=== PATIENT | male | born 1995 | race Caucasian/White ===

== ENCOUNTER 2021-12-08 17:55 | Outpatient (REF) | payer MEDICARE, MEDICAID, SELFPAY ==
[2021-12-08 20:39] LABS: Abs Immature Grans 0.04 10^3/uL (0.0-0.06); Absolute Eosinophil Count 0.11 10^3/uL (0.0-0.7); Absolute Lymphocyte Count 4.01 10^3/uL (1.2-3.4); Absolute Monocyte Count 0.78 10^3/uL (0.1-0.8); Basophils % 0.9; HCT 40.5 % (40.0-50.0); HGB 14.2 g/dL (13.5-17.5); Immature Grans % 0.4; Lymphocytes % 36.3; MCH 30.9 pg (27.0-33.0); MCHC 35.1 % (32.0-36.0); MCV 88.2 fL (80-95); MPV 11.3 fL (8.0-11.0); Monocytes % 7.1; Neutrophils % 54.3; Nucleated RBC 0 %; Platelet Count 316 10^3/uL (130-400); RBC 4.59 10^6/uL (4.36-5.78); RDW 12.3 % (11.8-14.1); RDW-SD 39.3 fL; WBC 11.05 10^3/uL (4.4-10.8)
[2021-12-08 20:59] LABS: Anion Gap 9.4 mmol/L (3-11); BUN 9 mg/dL (7-18); CO2 26.6 mmol/L (21.0-32.0); CREATININE 0.6 mg/dL (0.70-1.30); Chloride 104 mmol/L (98-107); Glucose 94 mg/dL (74-106); Potassium 3.6 mmol/L (3.5-5.1); Sodium 140 mmol/L (136-145); TSH (W/Ref FT4) 0.33 uIU/mL (0.36-3.74)
[2021-12-08 21:19] LABS: FREE T4 0.86 ng/dL (0.76-1.46)
== END 2021-12-08 17:56 | disposition home or self-care (01) ==
LOC: NCHCN 17:55
PROVIDERS: Visit Provider Family Medicine
DX: F41.9 Anxiety disorder, unspecified (principal); M79.10 Myalgia, unspecified site
CPT/HCPCS: 80048; 84439; 84443; 85025

== ENCOUNTER 2021-12-12 06:15 | Emergency (ER) | payer MEDICARE, MEDICAID, SELFPAY ==
[2021-12-12] VITALS (10 sets, daily range): BP systolic 125–145; BP diastolic 74–88; PULSE 75–122; RESP 12–18; TEMP 36.4–37; O2SAT 97–100
--- NOTE | 2021-12-12 06:45 | DI.CT_ITS ---
Exam(s) CT HEAD WO EXAM: CT HEAD WO CLINICAL HISTORY: intermittant weakness, tingling, headache, r/o mas. TECHNIQUE: Imaging Protocol: Axial computed tomography images with coronal and sagittal reformatted images were created and reviewed COMPARISON: No exams were available for comparison FINDINGS: There are no skull fractures nor fluid in the visualized paranasal sinuses. There is no evidence of intracranial hemorrhage, mass effect, or shift of midline structures. There are no extra-axial fluid collections. The ventricles are not enlarged or shifted and there is no blo od within the ventricular system nor within the basal cisterns. There is an element of cerebellar tonsillar ectopia. The temporal horns of the lateral ventricles ar e larger than typical for this age group. IMPRESSION: No acute intracranial findings. However, there is an element of cerebellar tonsillar ectopia. Also slight prominence of the temporal horns of the lateral ventricles noted. Recommend follow-up MRI. RADIATION DOSE DELIVERED: 925.57mGy.cm Total DLP DATA REPOSITORY: All CT scans at this facility are submitted to the National Radiology Data Registry (NRDR) Dose Index Registry (DIR) with the [employer] ([employer]). RADIATION OPTIMIZATION: All CT scans at this facility use at least one of these dose optimization te chniques: automated exposure control; mA and/or kV adjustment per patient size (includes targeted exa ms where dose is matched to clinical indication); or iterative reconstruction.
[2021-12-12] MEDS: Normal Saline 500 ML IV (07:02)
[2021-12-12 07:06] LABS: Source Nasal/Nares
[2021-12-12 07:08] LABS: Abs Immature Grans 0.04 10^3/uL (0.0-0.06); Absolute Basophil Count 0.06 10^3/uL (0.0-0.2); Absolute Monocyte Count 1.14 10^3/uL (0.1-0.8); Basophils % 0.5; Eosinophils % 0.6; HCT 39.3 % (40.0-50.0); HGB 14.3 g/dL (13.5-17.5); Immature Grans % 0.3; Lymphocytes % 27.5; MCH 31.8 pg (27.0-33.0); MCHC 36.4 % (32.0-36.0); MCV 87.3 fL (80-95); MPV 10.8 fL (8.0-11.0); Neutrophils % 62.1; Nucleated RBC 0 %; Platelet Count 295 10^3/uL (130-400); RDW 11.9 % (11.8-14.1); RDW-SD 38.1 fL; WBC 12.71 10^3/uL (4.4-10.8)
[2021-12-12 07:13] LABS: Absolute Eosinophil Count 0.08 10^3/uL (0.0-0.7)
[2021-12-12 07:14] LABS: Absolute Neutrophil Count 7.89 10^3/uL (1.2-6.7)
--- NOTE | 2021-12-12 07:18 | W.ED.GENAD ---
Discharge Plan Disposition Patient Disposition: HOME Condition: Good Discharge Details Clinical Impression: Transient neurological symptoms, Sinusitis Primary Care Provider: Yadira,Local ED Provider: Adolfo Yip Home Meds and New Rx's Prescriptions: New amoxicillin-pot clavulanate 875-125 mg tablet 1 tab PO BID Qty: 14 0RF Continued citalopram [Celexa] 20 MG tablet 20 mg PO DAILY Qty: 90 2RF Rx Instructions: Take 1 tablet daily. sertraline 20 mg/mL Concentrate 20 mg PO 0RF Discharge Instructions Instructions: Sinusitis (ED), Hypokalemia (ED) Additional Instructions: Your blood work showed your potassium was low otherwise your blood work and ct scan did not show an acute concerning findings follow up with your primary care provider and discuss having an outpatient MRI if you feel more ill, have severe worsening pain or weakness return to the emergency department Medical Decision Making <Afshin Borges, - Last Filed: 12/12/21 07:38> This is a very pleasant 26-year-old male with a past medical history of autism spectrum disorder, who presents today with a confluence of atypical symptoms. Patient states that about 1 week ago he developed mild headache, mild flulike symptoms. He took a at home Covid test at that time it was negative. He then subsequently developed mild nasal congestion, and mild fullness in his head. Since then intermittently and spontaneously he has had brief episodes of very atypical neurologic symptoms. These include phantom smells, sudden intermittent weakness in his feet or hands, an episode where the left side of his face briefly locked up, intermittent blurry vision episodes of feeling like he is spacing out, and a few episodes of feeling right he is having an out of body experience. He denies any IV or illicit drug use. He denies any history of symptoms like this before. He denies any syncope. He denies any current fever or chills. He denies any chest pain or cough. He does admit that his grandmother has sinus and upper respiratory symptoms at home right now but no other atypical symptoms. He denies having a history of neurologic abnormalities, and he denies any known family history of MS, brain tumors, but does admit to a family history of stroke at an elderly age. No other complaints at this time. No clear aggravating or relieving factors. Physical exam demonstrates a very pleasant male, no focal neurologic deficits, meningeal signs, or evidence of significant current infection. He does have notable cerumen impaction bilaterally. Although the patient had negative home Covid test, these symptoms may be related to having had coronavirus, and he Is potentially now demonstrating the subsequent neurologic sequelae. Brain tumor is less likely but on the differential. We will get a CT scan of his brain, basic labs to evaluate for electrolyte abnormality, monitor closely and reassess. Symptoms appear inconsistent with meningitis at this time. We will disimpact his ears. <Adolfo Yip MD - Last Filed: 12/12/21 09:59> This is a very pleasant 26-year-old male with a past medical history of autism spectrum disorder, who presents today with a confluence of atypical symptoms. Patient states that about 1 week ago he developed mild headache, mild flulike symptoms. He took a at home Covid test at that time it was negative. He then subsequently developed mild nasal congestion, and mild fullness in his head. Since then intermittently and spontaneously he has had brief episodes of very atypical neurologic symptoms. These include phantom smells, sudden intermittent weakness in his feet or hands, an episode where the left side of his face briefly locked up, intermittent blurry vision episodes of feeling like he is spacing out, and a few episodes of feeling right he is having an out of body experience. He denies any IV or illicit drug use. He denies any history of symptoms like this before. He denies any syncope. He denies any current fever or chills. He denies any chest pain or cough. He does admit that his grandmother has sinus and upper respiratory symptoms at home right now but no other atypical symptoms. He denies having a history of neurologic abnormalities, and he denies any known family history of MS, brain tumors, but does admit to a family history of stroke at an elderly age. No other complaints at this time. No clear aggravating or relieving factors. Physical exam demonstrates a very pleasant male, no focal neurologic deficits, meningeal signs, or evidence of significant current infection. He does have notable cerumen impaction bilaterally. Although the patient had negative home Covid test, these symptoms may be related to having had coronavirus, and he Is potentially now demonstrating the subsequent neurologic sequelae. Brain tumor is less likely but on the differential. We will get a CT scan of his brain, basic labs to evaluate for electrolyte abnormality, monitor closely and reassess. Symptoms appear inconsistent with meningitis at this time. We will disimpact his ears. nolahenri: pt's ct shows no acute findings, did show some cerebellar tonsillar ectopia which is likely chronic for him and not related to his symptoms. K improved with oral and iv repletion. HE is still asymptomatic with normal neuro exam, nih of 0. HE has had some sinus pressure for a week and will treat with augmentin for this, his tm's appear normal after irrigation. HE is stable for d/c and advised to f/u with his pcp and return precautions given Imaging Data Radiologic Study: Attestation: I personally reviewed and interpreted this imaging study as follows: Imaging: CT Scan Radiologist's impression: IMPRESSION: No acute intracranial findings.? However, there is an element of cerebellar tonsillar ectopia.? Also slight prominence of the temporal horns of the lateral ventricles noted.? Recommend follow-up MRI. Lab Data Lab results reviewed: Yes I reviewed the patient's lab results. HPI <Afshin Borges DO - Last Filed: 12/12/21 07:38> General Date/Time Provider Initiated Documentation: 12/12/21 06:34. HPI Narrative: This is a very pleasant 26-year-old male with a past medical history of autism spectrum disorder, who presents today with a confluence of atypical symptoms. Patient states that about 1 week ago he developed mild headache, mild flulike symptoms. He took a at home Covid test at that time it was negative. He then subsequently developed mild nasal congestion, and mild fullness in his head. Since then intermittently and spontaneously he has had brief episodes of very atypical neurologic symptoms. These include phantom smells, sudden intermittent weakness in his feet or hands, an episode where the left side of his face briefly locked up, intermittent blurry vision episodes of feeling like he is spacing out, and a few episodes of feeling right he is having an out of body experience. He denies any IV or illicit drug use. He denies any history of symptoms like this before. He denies any syncope. He denies any current fever or chills. He denies any chest pain or cough. He does admit that his grandmother has sinus and upper respiratory symptoms at home right now but no other atypical symptoms. He denies having a history of neurologic abnormalities, and he denies any known family history of MS, brain tumors, but does admit to a family history of stroke at an elderly age. No other complaints at this time. No clear aggravating or relieving factors. Related Data Home Medications Medication Instructions Recorded Confirmed citalopram 20 mg tablet (Celexa) 20 mg PO DAILY #90 tab-cap 03/12/16 amoxicillin 875 mg-potassium 1 tab PO BID #14 tab 12/12/21 clavulanate 125 mg tablet sertraline 20 mg/mL oral 20 mg PO 12/12/21 concentrate Previous Rx's Medication Instructions Recorded amoxicillin 875 mg-potassium 1 tab PO BID #14 tab 12/12/21 clavulanate 125 mg tablet Allergies Allergy/AdvReac Type Severity Reaction Status Date / Time No Known Drug Allergies Allergy Unverified 12/12/21 06:32 Equine dander AdvReac Swelling/Ed Uncoded 12/12/21 06:32 sher General Stated Complaint: GenMedical MARCO A: 4 Review of Systems <Afshin Borges DO - Last Filed: 12/12/21 07:38> All systems reviewed & are unremarkable except as noted in HPI and below PFSH <Afshin Borges DO - Last Filed: 12/12/21 07:38> All Active Problems (Updated 12/12/21 @ 09:20 by Adolfo Yip MD) Transient neurological symptoms (Acute) Sinusitis (Acute) Medical History Acne Anxiety Depressed Developmental delay, gross motor Surgical History Tooth extraction Family History Grandmother Depression with anxiety Gastroesophageal reflux Father Anxiety Social History Smoking/Tobacco Use Status: Never Smoking risk assessment performed?: Yes Drug use: Never Exam <Afshin Borges DO - Last Filed: 12/12/21 07:38> Narrative Exam Narrative: 1.Const: Well-nourished, Well-developed, appearing stated age 2.Eyes: PERRL, no conjunctival injection, and symmetrical lids. 3.ENT: Atraumatic external nose and ears. Moist MM. Neck: Symmetric, trachea midline, No thyromegaly. Notable bilateral cerumen impaction. No significant frontal sinus pain or pressure on palpation. Patient demonstrates good movement of cervical neck. There is no nuchal rigidity, no nuchal tenderness. Patient is able to flex the neck without any difficulty or significant pain. Negative Kernig's and Brudzinski sign. 4.CVS: +S1/S2, No murmurs or gallops. Peripheral pulses 2+ and equal in all extremities. Brisk capillary refill in all extremities. 5.RESP: Unlabored respiratory effort. Clear to auscultation bilaterally. No wheezes rales or rhonchi 6.GI: Soft, Nontender/Nondistended, No hepatosplenomegaly. No guarding or rebound. 7.MSK: Normocephalic/Atraumatic, Extremities w/o deformity or ttp No cyanosis or clubbing, Normal movement of all extremities 8.Skin: Warm, Dry. No rashes or lesions. 9.Neuro: confectionery cooker II-XII grossly intact. Sensation grossly intact, no focal neurologic deficits. All 6 cardinal planes of vision are fully intact. No evidence of rotatory or vertical nystagmus. The patient demonstrated a normal otivhl-[id number]-xpndio, good dexterity. There was no evidence of dysdiadochokinesia. Patient was able to ambulate without difficulty. There was no wide-based gait. Romberg testing was normal. Bmso-fd-tnxl testing was normal. Sensation was intact bilaterally as well as muscle strength bilaterally for all extremities. Patient was able to verbalize butter cup with no slurring, or miss pronunciation. 10.Psych: (AAO) x3. Appropriate mood and affect Course <Afshin Borges, DO - Last Filed: 12/12/21 07:38> Vital Signs Vital signs: Vital Signs Temperature 36.4 C L 12/12/21 06:24 Pulse 122 H 12/12/21 06:24 Respiratory Rate 18 12/12/21 06:24 Blood Pressure 131/88 12/12/21 06:24 Pulse Oximetry 97 12/12/21 06:24 Temperature 37.0 C 12/12/21 07:11 Temperature Source Temporal Artery Scan 12/12/21 07:11 Pulse 88 12/12/21 07:11 Respiratory Rate 12 12/12/21 07:11 Respiratory Effort 12/12/21 06:29 Respiratory Depth Normal 12/12/21 06:29 Respiratory Pattern Normal 12/12/21 06:29 Blood Pressure 133/76 12/12/21 07:11 Blood Pressure Position Supine 12/12/21 06:24 Pulse Oximetry 97 12/12/21 07:11 Oxygen Delivery Method Room Air 12/12/21 07:11 Oxygen Flow Rate 0 12/12/21 07:11 Pain Level 2 12/12/21 07:11 Lab/Test Results Lab/Test Results: Laboratory Tests Range/Units 12/12/21 12/12/21 06:58 06:58 WBC (4.4-10.8) 10^3/uL 12.71 H RBC (4.36-5.78) 10^6/uL 4.50 Hgb (13.5-17.5) g/dL 14.3 Hct (40.0-50.0) % 39.3 L MCV (80-95) fL 87.3 MCH (27.0-33.0) pg 31.8 MCHC (32.0-36.0) % 36.4 H RDW (11.8-14.1) % 11.9 Plt Count (130-400) 10^3/uL 295 MPV (8.0-11.0) fL 10.8 Immature Gran % 0.3 Neutrophils % 62.1 Lymphocytes % 27.5 Monocytes % 9.0 Eosinophils % 0.6 Basophils % 0.5 Nucleated RBC % % 0 Absolute Neutrophils (1.2-6.7) 10^3/uL 7.89 H Absolute Lymphocytes (1.2-3.4) 10^3/uL 3.50 H Absolute Monocytes (0.1-0.8) 10^3/uL 1.14 H Absolute Eosinophils (0.0-0.7) 10^3/uL 0.08 Absolute Basophils (0.0-0.2) 10^3/uL 0.06 COVID-19 Source Nasal/Nares Sign Out <DO Natalie Chavira Last Filed: 12/12/21 07:38> Sign Out Data: Sign Out Comment: f/u on labs andimagin Last updated by Afshin Borges DO at 12/12/21 07:52
[2021-12-12 07:34] LABS: ALT 14 U/L (16-63); AST 17 U/L (15-37); Albumin 4.1 g/dL (3.4-5.0); Alkaline Phosphatase 84 U/L (46-116); Anion Gap 11.3 mmol/L (3-11); BUN 6 mg/dL (7-18); Bilirubin, Total 0.6 mg/dL (0.2-1.0); CO2 25.7 mmol/L (21.0-32.0); CREATININE 0.5 mg/dL (0.70-1.30); Calcium 8.8 mg/dL (8.5-10.1); Chloride 102 mmol/L (98-107); Glucose 113 mg/dL (74-106); Sodium 139 mmol/L (136-145); TSH (W/Ref FT4) 0.46 uIU/mL (0.36-3.74); Total Protein 7.6 g/dL (6.4-8.2)
--- NOTE | 2021-12-12 07:35 | NUR.NOTE ---
Both ears irrigated by Bandar Ortiz RN per orders of Dr Borges, obtained moderate of cerum output.
[2021-12-12 07:36] LABS: Potassium 2.7 mmol/L (3.5-5.1)
[2021-12-12 07:44] LABS: COVID-19 PCR Negative (Negative)
[2021-12-12] MEDS: POTASSIUM CHLORIDE 20 MEQ/100 ML BAG 50 MEQ IVPB (08:06)
[2021-12-12 08:09] LABS: Magnesium 2.3 mg/dL (1.8-2.4)
[2021-12-12] MEDS: Potassium Chloride 20 MEQ TABCR 40 MEQ PO (08:33)
[2021-12-12] MEDS: Amoxicillin 875/Clav. 125 TAB PO (09:33)
[2021-12-12 09:43] LABS: Anion Gap 9.1 mmol/L (3-11); BUN 5 mg/dL (7-18); CO2 27.9 mmol/L (21.0-32.0); CREATININE 0.6 mg/dL (0.70-1.30); Calcium 8.7 mg/dL (8.5-10.1); Chloride 104 mmol/L (98-107); Glucose 119 mg/dL (74-106); Potassium 3.3 mmol/L (3.5-5.1); Sodium 141 mmol/L (136-145)
== END 2021-12-12 10:11 | disposition home or self-care (01) ==
PROVIDERS: Student in an Organized Health Care Education/Training Program; Emergency Provider Emergency Medicine
DX: R29.818 Other symptoms and signs involving the nervous system (principal); J01.90 Acute sinusitis, unspecified; R53.1 Weakness; R20.2 Paresthesia of skin; R51.9 Headache, unspecified; E87.6 Hypokalemia
CPT/HCPCS: 36415; 80048; 80053; 87635; 96361; 96365; 96366; 99284; 70450; 83735; 84443; 85025; J3480

== ENCOUNTER 2021-12-14 15:57 | Emergency (ER) | payer MEDICARE, MEDICAID, SELFPAY ==
[2021-12-14 16:36] VITALS: BP 126/76; PULSE 120; RESP 16; TEMP 37.3; O2SAT 96
[2021-12-14 17:06] VITALS: BP 127/69; PULSE 100; PULSE 105; RESP 10; O2SAT 96
[2021-12-14 17:07] VITALS: PULSE 105; RESP 16; O2SAT 96
[2021-12-14 17:10] VITALS: PULSE 109; RESP 19; O2SAT 97
[2021-12-14 18:40] LABS: Abs Immature Grans 0.06 10^3/uL (0.0-0.06); Absolute Eosinophil Count 0.07 10^3/uL (0.0-0.7); Absolute Neutrophil Count 8.87 10^3/uL (1.2-6.7); Basophils % 0.6; Eosinophils % 0.5; HCT 39.3 % (40.0-50.0); HGB 13.6 g/dL (13.5-17.5); Immature Grans % 0.4; Lymphocytes % 25.7; MCH 30.8 pg (27.0-33.0); MCHC 34.6 % (32.0-36.0); MCV 89.1 fL (80-95); MPV 11.2 fL (8.0-11.0); Monocytes % 9.6; Neutrophils % 63.2; Nucleated RBC 0 %; Platelet Count 310 10^3/uL (130-400); RBC 4.41 10^6/uL (4.36-5.78); RDW 12.4 % (11.8-14.1); RDW-SD 40.3 fL; WBC 14.03 10^3/uL (4.4-10.8)
[2021-12-14 18:43] LABS: Absolute Basophil Count 0.08 10^3/uL (0.0-0.2); Absolute Lymphocyte Count 3.61 10^3/uL (1.2-3.4); Absolute Monocyte Count 1.35 10^3/uL (0.1-0.8)
--- NOTE | 2021-12-14 18:57 | W.ED.GENAD ---
Discharge Plan Disposition Patient Disposition: HOME Condition: Stable Discharge Details Clinical Impression: Sinusitis Primary Care Provider: Yadira,Local ED Provider: Aj Dean Home Meds and New Rx's Prescriptions: Continued citalopram [Celexa] 20 MG tablet 20 mg PO DAILY Qty: 90 2RF Rx Instructions: Take 1 tablet daily. sertraline 20 mg/mL Concentrate 20 mg PO 0RF amoxicillin-pot clavulanate 875-125 mg tablet 1 tab PO BID Qty: 14 0RF Discharge Instructions Instructions: Sinusitis (ED) Additional Instructions: Continue Augmentin as directed. I have placed you on the care management list to help expedite outpatient ENT follow-up. Please watch for new or worsening symptoms and return to the ER for any concerns. I recommend you also contact your primary care provider tomorrow to discuss your ER visit, ongoing symptoms and need for outpatient reevaluation. Outpatient referral to neurology and/or MRI may be indicated if symptoms are to persist Referrals: Sky Alberto MD [ [facility] STAFF PHYSICIAN] - Medical Decision Making 26-year-old gentleman presents to the ER currently taking Augmentin for a sinus infection that was diagnosed 2 nights ago. He has been taking the Augmentin as directed and actually reports that overall he feels like his symptoms are improving. He found mold in his bedroom last night so he is concerned his infection may be secondary to a fungus. Clinically he appears well, nontoxic, blood pressure 126/76, heart rate 98, afebrile, neurologically intact, no signs of meningitis. Patient openly admits that he is extremely anxious and he needs reassurance that there is nothing more serious wrong. Plan is to obtain a CBC given his mild leukocytosis 2 days ago. I will also place him on ENT list to help expedite outpatient care. I strongly recommend he contact his primary care provider tomorrow to discuss his ongoing symptoms as well, if he continues to have any neurologic symptoms then outpatient referral to neurology and/or MRI may also be indicated. Patient is quite comfortable with this plan and has no additional questions or concerns Patient with mild leukocytosis of 14.03. He has only been on the antibiotics for 2 days and again he appears well, neurologically intact, nontoxic. While this is slightly elevated compared to 2 days ago, I do not believe that this indicates an emergent process and believe that moving forward it could serve as a data point to continue to monitor leukocytosis. Patient has no additional questions or concerns and is comfortable discharge at this time. Strict discharge and return precautions were provided. This documentation was generated using [employer] system, please disregard any oddities of phrase or misspellings. Medical Records Medical records reviewed: Yes I reviewed the patient's medical records. Lab Data Lab results reviewed: Yes I reviewed the patient's lab results. Labs: Laboratory Tests Range/Units 12/14/21 18:20 WBC (4.4-10.8) 10^3/uL 14.03 H RBC (4.36-5.78) 10^6/uL 4.41 Hgb (13.5-17.5) g/dL 13.6 Hct (40.0-50.0) % 39.3 L MCV (80-95) fL 89.1 MCH (27.0-33.0) pg 30.8 MCHC (32.0-36.0) % 34.6 RDW (11.8-14.1) % 12.4 Plt Count (130-400) 10^3/uL 310 MPV (8.0-11.0) fL 11.2 H Immature Gran % 0.4 Neutrophils % 63.2 Lymphocytes % 25.7 Monocytes % 9.6 Eosinophils % 0.5 Basophils % 0.6 Nucleated RBC % % 0 Absolute Neutrophils (1.2-6.7) 10^3/uL 8.87 H Absolute Lymphocytes (1.2-3.4) 10^3/uL 3.61 H Absolute Monocytes (0.1-0.8) 10^3/uL 1.35 H Absolute Eosinophils (0.0-0.7) 10^3/uL 0.07 Absolute Basophils (0.0-0.2) 10^3/uL 0.08 HPI General Mode of arrival: ambulatory. Date/Time Provider Initiated Documentation: 12/14/21 16:45. Limitations to Documentation: no limitations. Information obtained by: patient. HPI Narrative: This is a 26-year-old gentleman, past medical history of autism spectrum disorder, presenting to the ER specifically concerned that he may have a fungal sinusitis infection. Patient reports overall vague neurologic symptoms for the past week and a half associated with facial pressure and nasal congestion. He was seen in the ER on 3-8, had a CT of his brain, laboratory values, and subsequently was diagnosed with sinusitis and placed on Augmentin. Patient reports overall he feels as though his symptoms are improving taking the Augmentin but states that last night he noticed a small amount of mold in his bedroom. He has since bleached the area and cleaned it thoroughly but states that he looked online and is concerned that he may have a mold infection that could cause blindness or . He currently denies any fever, headache, visual changes, neck pain, cough, shortness of breath. Related Data Home Medications Medication Instructions Recorded Confirmed citalopram 20 mg tablet (Celexa) 20 mg PO DAILY #90 tab-cap 03/12/16 12/14/21 amoxicillin 875 mg-potassium 1 tab PO BID #14 tab 12/12/21 12/14/21 clavulanate 125 mg tablet sertraline 20 mg/mL oral 20 mg PO 12/12/21 concentrate Previous Rx's Medication Instructions Recorded amoxicillin 875 mg-potassium 1 tab PO BID #14 tab 12/12/21 clavulanate 125 mg tablet Allergies Allergy/AdvReac Type Severity Reaction Status Date / Time No Known Drug Allergies Allergy Unverified 12/14/21 16:39 Equine dander AdvReac Swelling/Ed Uncoded 12/14/21 16:39 sher General Stated Complaint: RespSymp MARCO A: 4 Review of Systems Constitutional Constitutional: Denies fever(s), Denies headache(s) and Denies weakness Eyes Eyes: Denies change in vision ENT Ears, Nose, Mouth, and Throat: Denies headache(s), Reports nasal congestion, Denies neck pain and Denies sore throat Cardiovascular Cardiovascular: Denies chest pain and Denies dyspnea Respiratory Respiratory: Denies cough and Denies dyspnea Gastrointestinal Gastrointestinal: Denies abdominal pain, Denies nausea and Denies vomiting Musculoskeletal Musculoskeletal: Denies neck pain Integumentary/Breasts Skin/Breast: Denies rash Neurologic Neurologic: Denies headache(s) and Denies weakness PFSH All Active Problems (Updated 12/14/21 @ 19:11 by KVNG Nieves) Transient neurological symptoms (Acute) Sinusitis (Acute) Medical History Acne Anxiety Depressed Developmental delay, gross motor Surgical History Tooth extraction Family History Grandmother Depression with anxiety Gastroesophageal reflux Father Anxiety Social History Smoking/Tobacco Use Status: Never Smoking risk assessment performed?: Yes Alcohol Intake: never Drug use: Never Substance use type: does not use Exam Const General: cooperative, healthy appearing, comfortable and no acute distress Orientation: alert, awake and oriented x3 HENMT Head: normal to inspection, normocephalic and atraumatic Ears: external ears normal, TM's normal bilaterally and EAC's normal General nose exam: external nose normal, nasal mucous membranes and turbinates normal and no nasal discharge Face and sinus: normal facial exam Mouth: moist mucous membranes Throat: posterior oropharynx normal Eyes General: appearance normal, both eyes and all related structures Alignment and Position: alignment normal Periorbital: periorbital findings normal Eyelids: eyelids normal Conjunctivae: conjunctivae normal Sclera: sclerae normal Cornea: corneas normal Pupils: PERRL EOM: EOM intact bilaterally Direct ophthalmoscopy: normal light reflex Neck Neck: normal visual inspection, full ROM, no lymphadenopathy, no meningeal signs, trachea midline, supple and nontender Resp Effort & Inspection: normal respiratory effort and able to speak in complete sentences Auscultation: clear to auscultation bilaterally Cardio Rate: regular rate Rhythm: regular rhythm Skin General skin exam: no rashes or lesions noted Neuro General: patient alert, patient awake, patient oriented x3, moves all extremities and no focal motor deficits Cognition: normal cognition Speech: speech normal Gait: normal gait Motor: muscle tone normal throughout, no movement abnormalities noted and no fasciculations Sensory Exam: no sensory deficits noted Psych Appearance: grossly normal Mental Status: mental status grossly normal Course Vital Signs Vital signs: Vital Signs Temperature 37.3 C 12/14/21 16:36 Pulse 120 H 12/14/21 16:36 Respiratory Rate 16 12/14/21 16:36 Blood Pressure 126/76 12/14/21 16:36 Pulse Oximetry 96 12/14/21 16:36 Temperature 37.3 C 12/14/21 16:36 Temperature Source Skin 12/14/21 16:36 Pulse 105 H 12/14/21 17:06 Pulse 109 H 12/14/21 17:10 Respiratory Rate 19 12/14/21 17:10 Respiratory Effort Non-Labored 12/14/21 17:02 Respiratory Depth Normal 12/14/21 17:02 Blood Pressure 127/69 12/14/21 17:06 Blood Pressure Mean 81 12/14/21 17:06 Blood Pressure Position Sitting 12/14/21 16:36 Pulse Oximetry 97 12/14/21 17:10 Oxygen Delivery Method Room Air 12/14/21 16:36 Oxygen Flow Rate 0 12/14/21 16:36 Pain Level 4 12/14/21 16:36 Lab/Test Results Lab/Test Results: Laboratory Tests Range/Units 12/14/21 18:20 WBC (4.4-10.8) 10^3/uL 14.03 H RBC (4.36-5.78) 10^6/uL 4.41 Hgb (13.5-17.5) g/dL 13.6 Hct (40.0-50.0) % 39.3 L MCV (80-95) fL 89.1 MCH (27.0-33.0) pg 30.8 MCHC (32.0-36.0) % 34.6 RDW (11.8-14.1) % 12.4 Plt Count (130-400) 10^3/uL 310 MPV (8.0-11.0) fL 11.2 H Immature Gran % 0.4 Neutrophils % 63.2 Lymphocytes % 25.7 Monocytes % 9.6 Eosinophils % 0.5 Basophils % 0.6 Nucleated RBC % % 0 Absolute Neutrophils (1.2-6.7) 10^3/uL 8.87 H Absolute Lymphocytes (1.2-3.4) 10^3/uL 3.61 H Absolute Monocytes (0.1-0.8) 10^3/uL 1.35 H Absolute Eosinophils (0.0-0.7) 10^3/uL 0.07 Absolute Basophils (0.0-0.2) 10^3/uL 0.08
[2021-12-14 19:22] VITALS: BP 115/64; PULSE 99; RESP 20; TEMP 36.5; O2SAT 96
== END 2021-12-14 19:24 | disposition home or self-care (01) ==
PROVIDERS: Emergency Provider Physician Assistant; PCP Nurse Practitioner Family
DX: J01.90 Acute sinusitis, unspecified (principal); D72.829 Elevated white blood cell count, unspecified
CPT/HCPCS: 99281; 85025; 99282

== ENCOUNTER 2022-12-20 16:05 | Outpatient (REF) | payer MEDICARE, MEDICAID, SELFPAY ==
[2022-12-20 21:40] LABS: TSH (W/Ref FT4) 0.51 uIU/mL (0.36-3.74)
== END 2022-12-20 16:06 | disposition home or self-care (01) ==
LOC: NCHCN 16:05
PROVIDERS: PCP Nurse Practitioner Family; Visit Provider Nurse Practitioner Family
DX: E05.90 Thyrotoxicosis, unspecified without thyrotoxic crisis or storm (principal); F41.8 Other specified anxiety disorders; F84.0 Autistic disorder; E66.8 Other obesity
CPT/HCPCS: 84443

== ENCOUNTER 2024-03-16 16:25 | Outpatient (REF) | payer MEDICARE, MEDICAID, SELFPAY ==
[2024-03-16 21:35] LABS: Hemoglobin A1C 5.5 % (<5.7)
[2024-03-16 22:01] LABS: Anion Gap 8.8 mmol/L (3-11); BUN 8 mg/dL (7-18); CO2 27.2 mmol/L (21.0-32.0); CREATININE 0.6 mg/dL (0.70-1.30); Calculated LDL 161 mg/dL (<100); Chloride 100 mmol/L (98-107); Cholesterol 228 mg/dL (<200); Estimated GFR 136.53 (mL/min/1.73m2); Glucose 88 mg/dL (74-106); HDL Cholesterol 39 mg/dL (40-60); Magnesium 2.1 mg/dL (1.8-2.4); Potassium 3.6 mmol/L (3.5-5.1); Sodium 136 mmol/L (136-145); Triglyceride 142 mg/dL (<150); Vitamin B12 254 pg/mL (193-986)
[2024-03-17 12:10] LABS: FREE T4 0.86 ng/dL (0.76-1.46); TSH 0.51 uIU/Ml (0.36-3.74)
== END 2024-03-16 16:26 | disposition home or self-care (01) ==
LOC: NCHCN 16:25
PROVIDERS: PCP Nurse Practitioner Family; Visit Provider Nurse Practitioner Family
DX: E66.9 Obesity, unspecified (principal); K30 Functional dyspepsia; E05.90 Thyrotoxicosis, unspecified without thyrotoxic crisis or storm
CPT/HCPCS: 80048; 80061; 82607; 83036; 83735; 84439; 84443

== ENCOUNTER 2025-06-22 15:15 | Outpatient (REF) | payer MEDICARE, MEDICAID, SELFPAY ==
[2025-06-22 15:58] LABS: Anion Gap 11.5 mmol/L (3-11); BUN 5 mg/dL (7-18); CO2 27.5 mmol/L (21.0-32.0); Calcium 8.9 mg/dL (8.5-10.1); Chloride 102 mmol/L (98-107); Estimated GFR 135.69 (mL/min/1.73m2); Glucose 102 mg/dL (74-106); Magnesium 2.2 mg/dL (1.8-2.4); Potassium 3.4 mmol/L (3.5-5.1); Sodium 141 mmol/L (136-145); TSH 1.20 uIU/mL (0.36-3.74); Vitamin B12 358 pg/mL (193-986)
[2025-06-22 23:09] LABS: T3,Free 4.2 pg/mL (2.8-5.3)
== END 2025-06-22 15:16 | disposition home or self-care (01) ==
LOC: NCHCN 15:15
PROVIDERS: PCP Nurse Practitioner Family; Visit Provider Nurse Practitioner Family
DX: E05.90 Thyrotoxicosis, unspecified without thyrotoxic crisis or storm (principal)
CPT/HCPCS: 80048; 82607; 83735; 84439; 84443; 84481